=== PATIENT | male | born 1985 ===

== ENCOUNTER → 2022-05-12 12:44 | Outpatient (CLI) | payer MEDICAID, SELFPAY ==
--- NOTE | 2022-05-12 | DI.RAD_ITS ---
Exam(s) XR KNEE RT 3V AP,LAT,VIKASH EXAM: XR KNEE RT 3V AP,LAT,VIKASH CLINICAL HISTORY: RIGHT KNEE PAIN-[id number]. TECHNIQUE: 2D digital imaging was performed of the right knee. Three views obtained. AP, lateral an d PA tunnel views were obtained. COMPARISON: No exams were available for comparison FINDINGS: BONES: No acute fracture is present. No bony destructive lesion is seen. JOINTS: The knee is normally aligned. No joint effusion is seen. SOFT TISSUE: Normal. IMPRESSION: Unremarkable radiographs of the right knee. DATA REPOSITORY: RADIATION DOSE DELIVERED:
== END ==
PROVIDERS: Visit Provider Nurse Practitioner Family
DX: M25.561 Pain in right knee (principal)
CPT/HCPCS: 73562